=== PATIENT | female | born 1950 | race Caucasian/White ===

== ENCOUNTER → 2016-07-10 | Outpatient (REF) | payer MEDICARE, BC ==
[~2016-07-10] MED LIST: /FEXO18TA; /HCTZ25TA PO; /WARF25TA; ACETAMIN PO; ACIPHEX; ANAS0.12; CELEBREX PO; DIOV160T5; ENBREL INJECTION INJ; FOLITAB11 PO; HYDR-727; METH2.5T; METH2.5T PO; OMEPPOW18 PO; OXYC-208 PO; PAIN325T; PERC5TAB8; PRED5TAB; SENN8.6T7 PO; TRAMADOL PO; ZOLO50TA PO; boniva
[2016-07-11 11:13] LABS: CALCIUM LEVEL 8.9 MG/DL (8.8-10.2); CREATININE FOR GFR 1.1 MG/DL (0.55-1.02); GLOMERULAR FILTRATION RATE 53.1 (>45); POTASSIUM SERUM 4.8 MEQ/L (3.5-5.1)
[2016-07-11 11:15] LABS: MEAN CORPUSCULAR HEMOGLOBIN 31.9 pg (27.0-33.0); MEAN CORPUSCULAR HGB CONC 32.4 g/dl (32.0-36.5); MEAN CORPUSCULAR VOLUME 98.6 fl (80.0-96.0); RED CELL DISTRIBUTION WIDTH 13.6 % (11.5-14.5)
== END ==
LOC: M LABSMT 15:45
PROVIDERS: ATTEND Urology
DX: Z85.528 Personal history of other malignant neoplasm of kidney (principal)

== ENCOUNTER → 2016-08-22 | Outpatient (CLI) | payer MEDICARE ==
[2016-08-22 21:46] LABS: MAGNESIUM LEVEL 2.1 MG/DL (1.8-2.4)
[2016-08-28 00:09] LABS: F002-IgE Milk < 0.10 kU/L (Class 0); F004-IgE Wheat < 0.10 kU/L (Class 0); F013-IgE Peanut < 0.10 kU/L (Class 0); F014-IgE Soybean < 0.10 kU/L (Class 0); F026-IgE Pork < 0.10 kU/L (Class 0); F027-IgE Beef < 0.10 kU/L (Class 0); F245-IgE Egg, Whole < 0.10 kU/L (Class 0); FX02-IgE Food Mix (Sea Foods) Negative (.)
== END ==
LOC: M SMT 14:12
PROVIDERS: ATTEND Internal Medicine Gastroenterology
DX: R10.32 Left lower quadrant pain (principal); K21.9 Gastro-esophageal reflux disease without esophagitis; K44.9 Diaphragmatic hernia without obstruction or gangrene; R19.7 Diarrhea, unspecified; K22.70 Barrett's esophagus without dysplasia; C64.9 Malignant neoplasm of unspecified kidney, except renal pelvis; Z79.899 Other long term (current) drug therapy

== ENCOUNTER → 2017-02-12 | Outpatient (REF) | payer MEDICARE ==
[2017-02-12 19:40] LABS: CALCIUM LEVEL 9.3 MG/DL (8.8-10.2); CREATININE FOR GFR 1.08 MG/DL (0.55-1.02); GLOMERULAR FILTRATION RATE 54.2 (>45); POTASSIUM SERUM 4.6 MEQ/L (3.5-5.1)
[2017-02-12 20:00] LABS: MEAN CORPUSCULAR HEMOGLOBIN 33.6 pg (27.0-33.0); MEAN CORPUSCULAR HGB CONC 33.5 g/dl (32.0-36.5); MEAN CORPUSCULAR VOLUME 100.4 fl (80.0-96.0); RED CELL DISTRIBUTION WIDTH 12.8 % (11.5-14.5); WHITE BLOOD COUNT 6.5 K/mm3 (4.0-10.0)
== END ==
LOC: M SMT 12:30
PROVIDERS: ATTEND Urology
DX: C64.9 Malignant neoplasm of unspecified kidney, except renal pelvis (principal); E55.9 Vitamin D deficiency, unspecified

== ENCOUNTER → 2017-02-12 | Outpatient (CLI) | payer MEDICARE | LOC: M LRY 12:03 | PROVIDERS: ATTEND Internal Medicine Gastroenterology | DX: E55.9 Vitamin D deficiency, unspecified (principal) ==

== ENCOUNTER 2017-08-26 07:01 | Day surgery (SDC) | payer MEDICARE ==
[~2017-08-26 07:01] MED LIST changes: -/FEXO18TA; -/HCTZ25TA PO; -/WARF25TA; -ACETAMIN PO; +ACETAMINOPHEN 325 MG TAB PO; -ACIPHEX; -ANAS0.12; -CELEBREX PO; -DIOV160T5; -ENBREL INJECTION INJ; -FOLITAB11 PO; -HYDR-727; -METH2.5T; -METH2.5T PO; -OMEPPOW18 PO; -OXYC-208 PO; -PAIN325T; -PERC5TAB8; +PHENYLEPHRINE HCL 10 % OPHTH. SOL 5ML OD; -PRED5TAB; +PROPARACAINE 0.5% OPHTH SOL 15ML OD; -SENN8.6T7 PO; -TRAMADOL PO; -ZOLO50TA PO; -boniva
[2017-08-26] MEDS ORDERED: MIDAZOLAM INJ 2 MG/2 ML VIAL (J2250) As Ordered (07:13)
[2017-08-26] MEDS ORDERED: fentaNYL 100 MCG/2 ML INJECTION (J3010) As Ordered (07:14)
[2017-08-26] MEDS: LIDOCAINE 3.5 % 1ML OPHTH TOPICAL GEL OU (07:15)
[2017-08-26] MEDS: CYCLOPENTOLATE 2% OPHTH SOLN 2ML BTL OD (07:20)
[2017-08-26] MEDS: PHENYLEPHRINE 2.5% OPHTH SOL 2ML OD (07:25)
[2017-08-26] MEDS: TROPICAMIDE 1% OPHTH SOLN 2ML OD (07:30)
[2017-08-26] MEDS: OFLOXACIN 0.3 % (OCUFLOX) OPTH SOL 5ML OD (07:30)
[2017-08-26] MEDS: POVIDONE-IODINE 5% OPHTH PREP SOL 30ML As Ordered (09:00)
[2017-08-26] MEDS ORDERED: ACETYLCHOLINE OPHTH SOLN 1% 2ML (MIOCHOL-E) As Ordered (09:04)
[2017-08-26] MEDS: BALANCED SALT IRRIGATION SOLUTION 500ML BAG (FOR OR EYE MACHINE) As Ordered (09:05)
[2017-08-26] MEDS: CEFUROXIME 1MG/0.1ML INTRACAMERAL INJ As Ordered (09:05)
[2017-08-26] MEDS: LIDOCAINE 1% SDV 5 ML VIAL As Ordered (09:05)
[2017-08-26] MEDS: HEALON DUET (HEALON 10MG/ML 0.55ML & HEALON ENDOCOAT 30MG/ML 0.85ML) As Ordered (09:05)
[2017-08-26] MEDS ORDERED: ONDANSETRON 4MG/2ML VIAL (J2405) IV (09:30)
[2017-08-26] MEDS ORDERED: TRIMETHOBENZAMIDE 300 MG CAP PO (09:30)
[2017-08-26] MEDS: AcetaZOLAMIDE 500 MG ER CAP PO (09:33)
[2017-08-26] MEDS: KETOROLAC 0.5% OPHTH SOLN OD (09:33)
== END 2017-08-26 09:48 | disposition home or self-care (01) ==
LOC: M SDC 07:01
DX: H25.11 Age-related nuclear cataract, right eye (principal); I10 Essential (primary) hypertension; R01.1 Cardiac murmur, unspecified; K58.9 Irritable bowel syndrome, unspecified; K22.70 Barrett's esophagus without dysplasia; K21.9 Gastro-esophageal reflux disease without esophagitis; M06.9 Rheumatoid arthritis, unspecified; L40.52 Psoriatic arthritis mutilans; M79.7 Fibromyalgia; M81.0 Age-related osteoporosis without current pathological fracture; N28.9 Disorder of kidney and ureter, unspecified; Z88.5 Allergy status to narcotic agent; Z88.8 Allergy status to other drugs, medicaments and biological substances; Z91.030 Bee allergy status; Z91.040 Latex allergy status; Z79.899 Other long term (current) drug therapy; Z85.528 Personal history of other malignant neoplasm of kidney; Z85.858 Personal history of malignant neoplasm of other endocrine glands
CPT/HCPCS: 66984

== ENCOUNTER → 2017-09-01 | Outpatient (CLI) | payer MEDICARE ==
[2017-09-01 16:26] LABS: HEMATOCRIT 39.9 % (36.0-47.0); HEMOGLOBIN 13.4 g/dl (12.0-16.0); MEAN CORPUSCULAR HEMOGLOBIN 33.3 pg (27.0-33.0); MEAN CORPUSCULAR HGB CONC 33.6 g/dl (32.0-36.5); PLATELET COUNT, AUTOMATED 259 10^3/uL (150-450); RED BLOOD COUNT 4.03 10^6/uL (4.00-5.40); RED CELL DISTRIBUTION WIDTH 12.9 % (11.5-14.5); WHITE BLOOD COUNT 8.3 10^3/uL (4.0-10.0)
[2017-09-01 16:43] LABS: ANION GAP 6 MEQ/L (8-16); BLOOD UREA NITROGEN 25 MG/DL (7-18); CALCIUM LEVEL 9.1 MG/DL (8.8-10.2); CARBON DIOXIDE LEVEL 30 MEQ/L (21-32); CHLORIDE LEVEL 105 MEQ/L (98-107); CREATININE FOR GFR 0.96 MG/DL (0.55-1.30); GLOMERULAR FILTRATION RATE > 60.0 (>45); GLUCOSE, FASTING 96 MG/DL (70-100); SODIUM LEVEL 141 MEQ/L (136-145)
[2017-09-01 16:47] LABS: APPEARANCE, URINE CLEAR (CLEAR); BACTERIA, URINE AUTO NEGATIVE (NEGATIVE); BILIRUBIN, URINE AUTO NEGATIVE (NEGATIVE); BLOOD, URINE BLOOD NEGATIVE (NEGATIVE); COLOR, URINE YELLOW (YELLOW); GLUCOSE, URINE (UA) AUTO NEGATIVE (NEGATIVE); KETONE, URINE AUTO NEGATIVE (NEGATIVE); LEUKOCYTE ESTERASE, URINE AUTO 1+ (NEGATIVE); MUCUS, URINE SMALL (NEGATIVE); NITRITE, URINE AUTO NEGATIVE (NEGATIVE); PROTEIN, URINE AUTO NEGATIVE (NEGATIVE); RBC, URINE AUTO 2 /HPF (0-3); SPECIFIC GRAVITY URINE AUTO 1.016 (1.002-1.035); SQUAMOUS EPITHELIAL CELL UR AU 0 /HPF (0-6); UROBILINOGEN, URINE AUTO 0.2 mg/dL (0.0-2.0); WBC, URINE AUTO 4 /HPF (0-3)
== END ==
LOC: M WUC 15:17
DX: Z08 Encounter for follow-up examination after completed treatment for malignant neoplasm (principal); Z85.528 Personal history of other malignant neoplasm of kidney; Z79.899 Other long term (current) drug therapy
CPT/HCPCS: 80048

== ENCOUNTER 2017-09-02 09:33 | Day surgery (SDC) | payer MEDICARE ==
[~2017-09-02 09:33] MED LIST changes: -PHENYLEPHRINE HCL 10 % OPHTH. SOL 5ML OD; +PHENYLEPHRINE HCL 10 % OPHTH. SOL 5ML OS; -PROPARACAINE 0.5% OPHTH SOL 15ML OD; +PROPARACAINE 0.5% OPHTH SOL 15ML OS
[2017-09-02] MEDS ORDERED: TRIMETHOBENZAMIDE 300 MG CAP PO (09:45)
[2017-09-02] MEDS ORDERED: fentaNYL 100 MCG/2 ML INJECTION (J3010) As Ordered (10:03)
[2017-09-02] MEDS ORDERED: PHENYLEPHRINE 2.5% OPHTH SOL 2ML As Ordered (10:18)
[2017-09-02] MEDS ORDERED: TROPICAMIDE 1% OPHTH SOLN 2ML As Ordered (10:19)
[2017-09-02] MEDS ORDERED: CYCLOPENTOLATE 2% OPHTH SOLN 2ML BTL As Ordered (10:19)
[2017-09-02] MEDS ORDERED: OFLOXACIN 0.3 % (OCUFLOX) OPTH SOL 5ML As Ordered (10:19)
[2017-09-02] MEDS: LIDOCAINE 3.5 % 1ML OPHTH TOPICAL GEL OU (10:35)
[2017-09-02] MEDS: OFLOXACIN 0.3 % (OCUFLOX) OPTH SOL 5ML OS (10:35)
[2017-09-02] MEDS: CYCLOPENTOLATE 2% OPHTH SOLN 2ML BTL OS (10:36)
[2017-09-02] MEDS: PHENYLEPHRINE 2.5% OPHTH SOL 2ML OS (10:36)
[2017-09-02] MEDS: TROPICAMIDE 1% OPHTH SOLN 2ML OS (10:36)
[2017-09-02] MEDS ORDERED: MIDAZOLAM INJ 2 MG/2 ML VIAL (J2250) As Ordered (10:41)
[2017-09-02] MEDS: POVIDONE-IODINE 5% OPHTH PREP SOL 30ML As Ordered (12:07)
[2017-09-02] MEDS: LIDOCAINE 1% SDV 5 ML VIAL As Ordered (12:07)
[2017-09-02] MEDS: CEFUROXIME 1MG/0.1ML INTRACAMERAL INJ As Ordered (12:13)
[2017-09-02] MEDS: HEALON DUET (HEALON 10MG/ML 0.55ML & HEALON ENDOCOAT 30MG/ML 0.85ML) As Ordered (12:13)
[2017-09-02] MEDS: BALANCED SALT IRRIGATION SOLUTION 500ML BAG (FOR OR EYE MACHINE) As Ordered (12:13)
[2017-09-02] MEDS: KETOROLAC 0.5% OPHTH SOLN OS (12:42)
[2017-09-02] MEDS: AcetaZOLAMIDE 500 MG ER CAP PO (12:43)
== END 2017-09-02 13:00 | disposition home or self-care (01) ==
LOC: M SDC 09:33
DX: H25.12 Age-related nuclear cataract, left eye (principal); I10 Essential (primary) hypertension; R01.1 Cardiac murmur, unspecified; K58.9 Irritable bowel syndrome, unspecified; K22.70 Barrett's esophagus without dysplasia; K21.9 Gastro-esophageal reflux disease without esophagitis; M79.7 Fibromyalgia; M81.0 Age-related osteoporosis without current pathological fracture; Z91.040 Latex allergy status; Z79.52 Long term (current) use of systemic steroids; Z79.899 Other long term (current) drug therapy
CPT/HCPCS: 66984

== ENCOUNTER → 2018-09-06 | Outpatient (REF) | payer MEDICARE ==
[~2018-09-06] MED LIST changes: +/FEXO18TA; +/HCTZ25TA PO; +/WARF25TA; +ACET500T15 PO; +ACETAMIN PO; -ACETAMINOPHEN 325 MG TAB PO; +ACIPHEX; +ANAS0.12; +CELEBREX PO; +CYMB1CAP5 PO; +DIOV160T5; +ENBREL INJECTION INJ; +FOLITAB11 PO; +HYDR-727; +HYDR200T3 PO; +LOMO2.5T PO; +METH2.5T; +METH2.5T PO; +MULT1TAB10 PO; +OMEP40CA2 PO; +OMEPPOW18 PO; +OXYC-208 PO; +PAIN325T; +PERC5TAB8; -PHENYLEPHRINE HCL 10 % OPHTH. SOL 5ML OS; +PRED5TA PO; +PRED5TAB; +PROBCAP4 PO; -PROPARACAINE 0.5% OPHTH SOL 15ML OS; +SENN8.6T7 PO; +TRAMADOL PO; +VALS80TA PO; +VITA100067 PO; +ZOLO50TA PO; +boniva
== END ==
LOC: M LAB REF 16:21
PROVIDERS: ATTEND Internal Medicine Gastroenterology
DX: K44.9 Diaphragmatic hernia without obstruction or gangrene (principal); Z80.0 Family history of malignant neoplasm of digestive organs; K59.1 Functional diarrhea

== ENCOUNTER → 2019-08-10 | Outpatient (REF) | payer MEDICARE ==
[~2019-08-10] MED LIST changes: -/HCTZ25TA PO; -/WARF25TA; +COUM1TAB18; +HYDR-3644 PO; -OMEP40CA2 PO; +OMEP40CA97 PO
== END ==
LOC: M LAB REF 15:46
PROVIDERS: ATTEND Ophthalmology
DX: H01.009 Unspecified blepharitis unspecified eye, unspecified eyelid (principal)